=== PATIENT | female | born 1930 | race Caucasian/White ===

== ENCOUNTER 2019-02-17 14:26 | Emergency (ER) | payer MEDICARE ==
[~2019-02-17] VITALS: Ht 157.5 cm; Wt 81.6 kg
[2019-02-17 14:33] VITALS: BP 117/41
--- NOTE | 2019-02-17 14:33 | NUR ---
PATIENT BIBA FROM HOME FOR ALOC. PER EMS PT HAD HX OF DM & ALOC, BLOOD SUGAR 20 ON SCENE. GIVEN D10% 500 CC & BLOOD SUGAR LEVEL BOUGHT UP TO 224, NOW 159. PATIENT IS OPEN EYES, CONFUSED, VSS, FLACC 0, NO S/S OF DISTRESS, GENERALIZED WEAKNESS NOTED. HX OF DM, HTN. PATIENT POSITIONED FOR COMFORT; HOB ELEVATED; BEDRAILS UP X2; BED DOWN. ER MD MADE AWARE OF PT STATUS.
--- NOTE | 2019-02-17 14:36 | NUR ---
Patient being evaluated by physician at bedside.
--- NOTE | 2019-02-17 15:00 | NUR ---
PATIENT IS OFF UNITS TO CT SCAN ACCOMPNIED WITH RN AND DIRECTOR FACILITIES MAINTENANCE
--- NOTE | 2019-02-17 15:00 | NUR ---
LAB COLLECTED, CALLED LAB FOR PATIENT SERVICES REPRESENTATIVE
--- NOTE | 2019-02-17 15:07 | NUR ---
CODE BRAIN CALLED PER DR SNOW.
--- NOTE | 2019-02-17 15:10 | NUR ---
CT AT BEDSIDE. PT TRANSPORTED TO CT VIA [facility] WITH RN AND BUCK PRESSER.
--- NOTE | 2019-02-17 15:22 | NUR ---
RETURNED FROM CT AND PLACED BACK INTO BED 03.
--- NOTE | 2019-02-17 15:25 | NUR ---
PATIENT IS MORE ALERT, ABLE TO KNOCK HEAD WITH FOR SIMPLE YES/NO QUESTIONS, FAMILY MEMBERS AT BEDSIDE.
--- NOTE | 2019-02-17 15:29 | NUR ---
X-RAY AT BEDSIDE
[2019-02-17 15:36] LABS: BASOPHILS # (AUTO) 0.1 K/uL (0.00-0.22); EOSINOPHILS # (AUTO) 0.4 K/uL (0-0.4); EOSINOPHILS % (AUTO) 4.6 % (0.0-4.0); HEMATOCRIT 39.6 % (36-48); HEMOGLOBIN 13.2 g/dL (12.0-16.0); LYMPHOCYTES # (AUTO) 2.1 K/uL (2.5-16.5); LYMPHOCYTES % (AUTO) 21.8 % (20.5-51.1); MEAN CORPUSCULAR HEMOGLOBIN 31 pg (27-31); MEAN CORPUSCULAR HGB CONC 33 g/dL (33-37); MEAN CORPUSCULAR VOLUME 93.2 fL (80-94); MONOCYTES # (AUTO) 0.6 K/uL (0.8-1.0); MONOCYTES % (AUTO) 6.5 % (1.7-9.3); NEUTROPHILS # (AUTO) 6.3 K/uL (1.8-7.7); NEUTROPHILS % (AUTO) 66.1 % (42.2-75.2); PLATELET COUNT (AUTO) 206 K/uL (140-450); RED BLOOD CELL COUNT(AUTO) 4.25 MIL/uL (4.20-5.40); WHITE BLOOD COUNT (AUTO) 9.5 K/uL (4.8-10.8)
--- NOTE | 2019-02-17 15:40 | NUR ---
# 14 FR Urinary catheter inserted utilizing sterile technique. Immediate return of 50 ml CLEAR YELLOW urine noted. Urine sample collected and sent to lab. Pt tolerated procedure WELL.
[2019-02-17 16:05] LABS: ANION GAP 10.8 (8-16); CARBON DIOXIDE 29.5 mmol/L (21-32); CHLORIDE 102 mmol/L (98-107); GLUCOSE 124 mg/dL (74-106); POTASSIUM 3.3 mmol/L (3.5-5.1); SODIUM SERUM 139 mmol/L (136-145); UREA NITROGEN, BLOOD 17 mg/dL (7-18)
--- NOTE | 2019-02-17 16:09 | NUR ---
PATIENT'S FAMILY STATES THEY ARE TAKING THE PATIENT'S CLOTHES HOME, LEAVING ONLY HER DENTURES TOP AND BOTTOM.
[2019-02-17 16:11] LABS: SALICYLATE < 2.8 mg/dL (2.8-20.0)
[2019-02-17 16:28] LABS: ALBUMIN 3.2 g/dL (3.4-5.0); ASPARTATE AMINOTRANSFERASE 14 U/L (15-37); CREATININE 0.9 mg/dL (0.6-1.3); TOTAL BILIRUBIN 0.4 mg/dL (0.0-1.0)
[2019-02-17 16:29] LABS: ACETAMINOPHEN < 0.5 ug/ml (10-30)
[2019-02-17 16:39] LABS: APPEARANCE,URINE CLEAR (CLEAR); BILIRUBIN,URINE NEGATIVE (NEGATIVE); BLOOD, URINE TRACE-I (NEGATIVE); COLOR,URINE YELLOW (YELLOW); LEUKOCYTE ESTERASE ,URINE NEGATIVE (NEGATIVE); NITRITE, URINE NEGATIVE (NEGATIVE); UGLUCOSE TRACE (NEGATIVE)
[2019-02-17 16:40] LABS: BARBITURATE, URINE NEG. ng/ml (NEG <=200); BENZODIAZEPINE, URINE NEG. ng/mL (NEG <=200); CANNABINOID, URINE NEG. ng/mL (NEG <=50); COCAINE, URINE NEG. ng/mL (NEG <=300); OPIATE, URINE NEG. ng/mL (NEG <=2000); PHENCYCLIDINE SCREEN,URINE NEG. ng/mL (NEG <=25)
[2019-02-17 17:03] LABS: RBC,URINE 0-5 /HPF (0-5); WBC,URINE 0-5 /HPF (0-5)
--- NOTE | 2019-02-17 17:50 | NUR ---
DINNER OFFERED, PATIENT FAMILY AT BEDSIDE HELPING OUT WITH DINNER, PATIENT IS MORE ALERT, ORIENTED X3 NOW, ABLE TO EAT WITHOUT DIFFICULTY
--- NOTE | 2019-02-17 18:54 | NUR ---
PATIENT IS AAOX4, TALKING NORMALLY, NO S/S OF DISTRESS, VSS, DENIES PAIN, ACCU CHECK WITH 142 AFTER DINNER, ED MD MADE AWARE.
--- NOTE | 2019-02-17 19:09 | NUR ---
REPORT GIVE TO PMO PROJECT MANAGER FOR CONTINUE OF CARE
[2019-02-17 19:15] VITALS: BP 113/48
--- NOTE | 2019-02-17 19:15 | NUR ---
Patient discharged TO HOME, Written and verbal after care instructions given and explained. Patient verbalized understanding. Ambulatory with steady gait. All questions addressed prior to discharge. Advised to follow up with PMD. IV REMOVED, AND ID BAND REMOVED. PT IS AAOX4, ABLE TO WALK AND SAFETY LEFT ER WITH FAMILY MEMBERS.
== END 2019-02-17 19:15 | disposition home or self-care (01) ==
LOC: MED 14:26
DX: E11.649 Type 2 diabetes mellitus with hypoglycemia without coma (principal); I10 Essential (primary) hypertension
CPT/HCPCS: 36415; 70450; 71045; 80053; 80305; 81001; 81025; 82550; 82948; 84484; 85025; 87086; 93005; 99284; G0480; G0482; Q0092